=== PATIENT | female | born 1995 | race Caucasian/White ===

== ENCOUNTER 2020-11-28 08:22 | Emergency (ER) | payer BC ==
[~2020-11-28] VITALS: Ht 165.1 cm; Wt 68.9 kg
--- NOTE | 2020-11-28 08:35 | NUR ---
L sided flank pain since thursday. Patient a/ox4, breathing even and unlabored, c/o severe pain on left flank. Ambulatory and assisted to bed 4.
--- NOTE | 2020-11-28 08:40 | NUR ---
Urine collected and sent to the lab
[2020-11-28] MEDS ORDERED: ONDANSETRON HCL/PF 4 MG/2 ML VIAL ONE (08:42)
[2020-11-28] MEDS ORDERED: KETOROLAC TROMETHAMINE 15 MG/ML VIAL ONE ×2 (08:42→08:59)
--- NOTE | 2020-11-28 08:43 | NUR ---
IV LINE ESTABLISHED AND SENT TO LAB
[2020-11-28 08:48] LABS: BILIRUBIN,URINE SMALL (NEGATIVE); COLOR,URINE YELLOW (YELLOW); LEUKOCYTE ESTERASE ,URINE Trace (NEGATIVE); NITRITE, URINE Negative (NEGATIVE); PROTEIN,URINE 30 mg/dl (NEGATIVE); UGLUCOSE Negative (NEGATIVE)
[2020-11-28 08:52] LABS: BASOPHILS # (AUTO) 0.1 K/uL (0.0-0.2); BASOPHILS % (AUTO) 1.1 % (0.0-2.0); EOSINOPHILS % (AUTO) 1.3 % (0.0-6.0); HEMATOCRIT 36 % (33-45); HEMOGLOBIN 11.8 g/dL (11.5-14.8); LYMPHOCYTES # (AUTO) 1.9 K/uL (0.8-4.8); MEAN CORPUSCULAR HGB CONC 33 g/dl (31.0-36.0); MEAN CORPUSCULAR VOLUME 84 fL (82-100); MONOCYTES # (AUTO) 0.5 K/uL (0.1-1.30); MONOCYTES % (AUTO) 7.9 % (2.0-12.0); NEUTROPHILS # (AUTO) 3.5 K/uL (1.8-8.9); NEUTROPHILS % (AUTO) 57.7 % (43.0-81.0); PLATELET COUNT (AUTO) 305 K/uL (150-450); RED BLOOD CELL COUNT(AUTO) 4.25 MIL/uL (4.0-5.2)
[2020-11-28 08:53] LABS: BACTERIA,URINE Few /HPF (None Seen); SQUAMOUS EPITHELIAL CELL,UR Few /HPF (None Seen)
[2020-11-28 08:56] LABS: CREATININE 0.8 mg/dL (0.6-1.3); POTASSIUM 3.7 mmol/L (3.5-5.1)
[2020-11-28] MEDS ORDERED: CEFTRIAXONE 1GM BAG (ER ONLY) 50 ML IV ONE (08:59)
[2020-11-28] MEDS ORDERED: MORPHINE SULFATE INJ 2 MG/ML DISP.SYRIN IV ONE (09:00)
[2020-11-28] MEDS ORDERED: CEFTRIAXONE 1GM BAG (ER ONLY) 1 GM/50 ML PIGGYBACK IV ONE (09:00)
[2020-11-28] MEDS ORDERED: ONDANSETRON HCL/PF 4 MG/2 ML VIAL IVP ONE (09:00)
[2020-11-28] MEDS ORDERED: KETOROLAC TROMETHAMINE INJ 30 MG/ML VIAL IV ONE ×2 (09:00)
[2020-11-28] MEDS ORDERED: MORPHINE SULFATE INJ 4 MG/ML DISP.SYRIN ONE (09:00)
[2020-11-28] MEDS ORDERED: IV NS 0.9% 1,000 ML BAG IV ONE (09:00)
[2020-11-28 09:02] LABS: ALBUMIN 3.9 g/dL (3.4-5.0); BILIRUBIN,DIRECT 0.1 mg/dL (0.0-0.2); BILIRUBIN,TOTAL 0.4 mg/dL (0.2-1.0); TOTAL PROTEIN, SERUM 7.6 g/dL (6.4-8.2)
--- NOTE | 2020-11-28 09:06 | NUR ---
PATIENT TAKEN TO RADIOLOGY FOR CT.
[2020-11-28] MEDS ORDERED: ONDA4TAB5 PO (09:48)
[2020-11-28] MEDS ORDERED: CIPR-262 PO (09:48)
[2020-11-28] MEDS ORDERED: IBUP-1953 PO (09:48)
--- NOTE | 2020-11-28 09:56 | NUR ---
PATIENT DENIES ANY PAIN AT THIS TIME. Patient ambulatory with steady gait. IV removed. Catheter intact and site benign. Pressure and 4x4 applied to site. No bleeding noted.Patient discharged to home in stable condition. Written and verbal after care instructions given. Patient verbalizes understanding of instruction.
[2020-11-28 09:57] VITALS: BP 129/58
== END 2020-11-28 09:57 | disposition home or self-care (01) ==
LOC: ER 08:25
DX: N20.0 Calculus of kidney (principal); N39.0 Urinary tract infection, site not specified; Z90.49 Acquired absence of other specified parts of digestive tract; Z98.890 Other specified postprocedural states
CPT/HCPCS: 36415; 74176; 80048; 80076; 81001; 83690; 84703; 85025; 87086; 96361; 96365; 96375; 99284; J0696; J1885 ×2; J2270; J2405; J7030